=== PATIENT | female | born 1955 | race Caucasian/White ===

== ENCOUNTER → 2017-02-05 | Outpatient (CLI) | payer BC, OTHER ==
--- NOTE | 2017-02-05 09:53 | MM ---
Reason for exam: screening (asymptomatic). Last mammogram was performed 1 year ago. History: Patient is postmenopausal. Physical Findings: A clinical breast exam by your physician is recommended on an annual basis and results should be correlated with mammographic findings. MG Screening Mammo w CAD Bilateral CC and MLO view(s) were taken. Prior study comparison: February 07, 2016, mammogram, performed at [facility]. February 05, 2015, mammogram, performed at [facility]. The breast tissue is almost entirely fat. There is no discrete abnormality. No significant changes when compared with prior studies. ASSESSMENT: Negative, BI-RAD 1 RECOMMENDATION: Routine screening mammogram of both breasts in 1 year.
== END | disposition home or self-care (01) ==
LOC: RADMAMWWP 07:36
PROVIDERS: ATTEND Family Medicine
DX: Z12.31 Encounter for screening mammogram for malignant neoplasm of breast (principal)

== ENCOUNTER → 2018-02-07 | Outpatient (CLI) | payer BC, OTHER ==
--- NOTE | 2018-02-08 13:25 | MM ---
Reason for exam: screening (asymptomatic). Last mammogram was performed 1 year ago. History: Patient is postmenopausal. Physical Findings: A clinical breast exam by your physician is recommended on an annual basis and results should be correlated with mammographic findings. MG Screening Mammo w CAD Bilateral CC, MLO, and XCCL view(s) were taken. Prior study comparison: February 05, 2017, bilateral MG screening mammo w CAD. February 07, 2016, mammogram, performed at [facility]. There are scattered fibroglandular densities. No significant changes when compared with prior studies. ASSESSMENT: Negative, BI-RAD 1 RECOMMENDATION: Routine screening mammogram of both breasts in 1 year.
== END | disposition home or self-care (01) ==
LOC: RADMAMWWP 07:58
PROVIDERS: ATTEND Family Medicine
DX: Z12.31 Encounter for screening mammogram for malignant neoplasm of breast (principal)
CPT/HCPCS: 77067

== ENCOUNTER → 2018-09-29 | Outpatient (CLI) | payer BC, OTHER ==
--- NOTE | 2018-09-30 13:55 | CONS ---
CONSULTATION DATE OF SERVICE: 10/03/2018 This patient is a 62-year-old lady who has been evaluated in the sleep center for possible obstructive sleep apnea-hypopnea syndrome. HISTORY OF PRESENT ILLNESS/SLEEP-WAKE EVALUATION: Patient usually goes to bed around 11 p.m. and gets up around 9 a.m. basically 7 days a week. Sometimes she has problems with falling asleep for more than 30 minutes. No TV in bedroom. She sleeps in different positions, has episodes of occasional snoring. She wakes up from sleep 2 times, one time with nocturia. During the day, she may take a nap at 4 p.m. She feels refreshed after a nap. Dewy Rose Sleepiness Scale is 3. PAST MEDICAL HISTORY: Positive for: 1. Hypertension. 2. Hypothyroidism. 3. Hyperlipidemia. 4. Diabetes mellitus. SURGICAL HISTORY: Partial hysterectomy. MEDICATIONS: 1. Glipizide. 2. L-thyroxine. 3. Metoprolol. 4. Lisinopril. 5. Procardia. 6. Fenofibrate. 7. Atorvastatin. 8. Hydrochlorothiazide. 9. Zolpidem, presently 10 mg at bedtime. REVIEW OF SYSTEMS: Difficulties to initiate sleep. Multiple awakenings from sleep. FAMILY HISTORY: Hypertension, hyperlipidemia, headaches, ulcers, diabetes, thyroid problems, anemia. PHYSICAL EXAMINATION: GENERAL: A pleasant lady without distress. VITAL SIGNS: BP 137/70, HR 93, RR 18, height 5 feet 3-1/2 inches, weight 245.6 pounds, body mass index 42.7, temperature 98.0, oxygen saturation at room air 95%. HEENT: PERRLA, EOMI. Evaluation of oropharynx showed tongue protrudes midline. Extremely low position of soft palate. Mallampati IV. NECK: Supple. No JVD. Thyroid is not palpable. Neck measures 15-1/2 inches in circumference. LUNGS: Clear to percussion and to auscultation. Good air exchange. No wheezing or rhonchi. HEART: S1, S2 regular. No murmurs, gallops or rubs. ABDOMEN: Obese. EXTREMITIES: No clubbing or cyanosis. GRAPHICS COORDINATOR: Awake, alert, and oriented X3. Cranial nerves 2 to 7 intact. There is no fasciculation or atrophy. noted. No focal deficits observed. IMPRESSION: 1. Snoring, awakenings from sleep with nocturia, extremely low position of soft palate; obstructive sleep apnea-hypopnea syndrome. 2. Obesity; body mass index was 42.7. 3. Hypertension. 4. Hyperlipidemia. 5. Diabetes mellitus. 6. Status post partial hysterectomy. 7. Difficulties to initiate sleep. 8. Psychophysiological insomnia. PLAN: 1. Polysomnography for evaluation of patient's breathing during sleep. 2. CPAP/BiPAP titration if sleep study confirms obstructive sleep apnea-hypopnea syndrome. 3. Preferable position during sleep on the side. 4. No driving if patient feels any sleepiness. 5. I will see patient for follow up visit to explain results of testing and following plan. 6. Psychological techniques for treatment of insomnia have been discussed with the patient, including stimulus control, paradoxical intention, worry time, no watching clock. Thank you very much for referring this patient for consultation. Sincerely, Paresh Zaidi MD, PhD, FAASM Diplomat of [place] [employer] [place] [employer] [facility] [place] MMODL / IJN: [id number] /
== END ==
LOC: SLEEP 14:36
PROVIDERS: ATTEND Internal Medicine
DX: G47.33 Obstructive sleep apnea (adult) (pediatric) (principal); E66.9 Obesity, unspecified; I10 Essential (primary) hypertension; E78.5 Hyperlipidemia, unspecified; E11.9 Type 2 diabetes mellitus without complications; F51.04 Psychophysiologic insomnia; Z90.711 Acquired absence of uterus with remaining cervical stump; Z99.89 Dependence on other enabling machines and devices; Z68.41 Body mass index [BMI] 40.0-44.9, adult; Z79.899 Other long term (current) drug therapy
CPT/HCPCS: 99211

== ENCOUNTER → 2019-03-14 | Outpatient (CLI) | payer BC, OTHER ==
--- NOTE | 2019-03-15 10:28 | MM ---
Reason for exam: screening (asymptomatic). Last mammogram was performed 1 year and 1 month ago. History: Patient is postmenopausal. Physical Findings: A clinical breast exam by your physician is recommended on an annual basis and results should be correlated with mammographic findings. MG Screening Mammo w CAD Bilateral CC and MLO view(s) were taken. Prior study comparison: February 07, 2018, bilateral MG screening mammo w CAD. February 05, 2017, bilateral MG screening mammo w CAD. There are benign appearing round linear calcifications in the left breast. There is no discrete abnormality. ASSESSMENT: Benign, BI-RAD 2 RECOMMENDATION: Routine screening mammogram of both breasts in 1 year.
== END | disposition home or self-care (01) ==
LOC: RADMAMWWP 14:58
PROVIDERS: ATTEND Family Medicine
DX: Z12.31 Encounter for screening mammogram for malignant neoplasm of breast (principal)
CPT/HCPCS: 77067

== ENCOUNTER → 2020-04-05 | Outpatient (CLI) | payer BC, OTHER ==
--- NOTE | 2020-04-08 10:30 | MM ---
Reason for exam: screening (asymptomatic). Last mammogram was performed 1 year and 1 month ago. History: Patient is postmenopausal. Physical Findings: A clinical breast exam by your physician is recommended on an annual basis and results should be correlated with mammographic findings. MG Screening Mammo w CAD Bilateral CC and MLO view(s) were taken. Prior study comparison: March 14, 2019, bilateral MG screening mammo w CAD. February 07, 2018, bilateral MG screening mammo w CAD. There are scattered fibroglandular densities. There is no discrete abnormality. No significant changes when compared with prior studies. ASSESSMENT: Negative, BI-RAD 1 RECOMMENDATION: Routine screening mammogram of both breasts in 1 year.
== END | disposition home or self-care (01) ==
LOC: RADMAMWWP 14:26
PROVIDERS: ATTEND Family Medicine
DX: Z12.31 Encounter for screening mammogram for malignant neoplasm of breast (principal)
CPT/HCPCS: 77067

== ENCOUNTER 2021-03-06 14:01 | Emergency (ER) | payer MEDICARE, BC ==
[2021-03-06 14:12] VITALS: TEMP 98.2
[2021-03-06] MEDS ORDERED: SODIUM CHLORIDE 0.9% 1,000 ML IV STA (14:38)
[2021-03-06] MEDS ORDERED: DICYCLOMINE 10 MG/ML 2 ML AMP IM STA (14:44)
[2021-03-06] MEDS ORDERED: PANTOPRAZOLE 40 MG/10 ML VIAL IVP STA (14:45)
[2021-03-06 15:40] LABS: Basophils % (A) 0 %; Eosinophils # (A) 0.1 k/uL (0-0.7); Eosinophils % (A) 1 %; HCT 36.2 % (34.0-46.0); HGB 12.5 gm/dL (11.4-16.0); Lymphocytes # (A) 1.5 k/uL (1.0-4.8); Lymphocytes % (A) 20 %; MCH 33.1 pg (25.0-35.0); MCHC 34.6 g/dL (31.0-37.0); MCV 95.7 fL (80.0-100.0); Monocytes # (A) 0.4 k/uL (0-1.0); Monocytes % (A) 6 %; Neutrophils # (A) 5.2 k/uL (1.3-7.7); Neutrophils % (A) 71 %; Platelet Count 329 k/uL (150-450); RBC 3.78 m/uL (3.80-5.40); RDW 13.6 % (11.5-15.5); WBC 7.3 k/uL (3.8-10.6)
[2021-03-06 15:43] VITALS: BP 184/86; PULSE 77; RESP 16
[2021-03-06 15:44] LABS: Appearance,Urine Cloudy (Clear); Bacteria,Urine Rare /hpf; Bilirubin,Urine Negative (Negative); Blood,Urine Negative (Negative); Color,Urine Yellow; Glucose,Urine (UA) Negative (Negative); Ketones,Urine Negative (Negative); Leukocyte Esterase,Urine Trace (Negative); Mucus,Urine Rare /hpf; Nitrite,Urine Negative (Negative); Protein,Urine 2+ (Negative); RBC,Urine 1 /hpf (0-5); Specific Gravity,Urine 1.011 (1.001-1.035); Squamous Epithelial Cell,Urine 2 /hpf (0-4); Urobilinogen,Urine <2.0 mg/dL (<2.0); WBC,Urine 4 /hpf (0-5)
[2021-03-06 15:50] LABS: ALT 32 U/L (4-34); AST 51 U/L (14-36); African American GFR (CKD) >90 (>60 ml/min/1.73 sqM); Albumin 4.8 g/dL (3.5-5.0); Alkaline Phosphatase 58 U/L (38-126); Anion Gap 12 mmol/L; Blood Urea Nitrogen 10 mg/dL (7-17); Calcium 9.5 mg/dL (8.4-10.2); Carbon Dioxide 32 mmol/L (22-30); Chloride 98 mmol/L (98-107); Glucose 140 mg/dL (74-99); Lipase 138 U/L (23-300); Non-African American GFR(CKD) >90 (>60 ml/min/1.73 sqM); Sodium 142 mmol/L (137-145); Total Bilirubin 0.3 mg/dL (0.2-1.3); Total Protein 7.7 g/dL (6.3-8.2)
--- NOTE | 2021-03-06 16:04 | ED ---
Nausea/Vomiting/Diarrhea HPI - General Chief complaint: Nausea/Vomiting/Diarrhea Stated complaint: Diarrhea, High BP Time Seen by Provider: 03/06/21 14:18 Source: patient Mode of arrival: ambulatory Limitations: no limitations - History of Present Illness Initial comments: 65 year old female presents to emergency Department with a chief complaint of diarrhea. Patient reports she began having diarrhea 3-4 days ago with nausea and few vomiting episodes. States she went to another emergency department 2 days ago and they obtained laboratory work as well as computed tomography scan was diagnosed with gastroenteritis. Patient reports she continues to have the profuse watery diarrhea. She reports some abdominal cramping, diffusely however she states this is particularly whenever she is having bowel movements. States the pain is not postprandial. States her also had a stomach bug 2 days prior to her. She also reports her blood sugar has been elevated more than usual. Also reports her blood pressure then usual but denies any chest pain shortness of breath fevers or chills. Denies any urinary or vaginal symptoms. - Related Data Allergies Allergy/AdvReac Type Severity Reaction Status Date / Time No Known Allergies Allergy Verified 03/06/21 14:12 Review of Systems ROS Statement: Those systems with pertinent positive or pertinent negative responses have been documented in the HPI. ROS Other: All systems not noted in ROS Statement are negative. Past Medical History Past Medical History: Coronary Artery Disease (CAD), Diabetes Mellitus, GERD/Reflux History of Any Multi-Drug Resistant Organisms: None Reported Past Surgical History: Cholecystectomy, Hysterectomy Past Psychological History: No Psychological Hx Reported Smoking Status: Never smoker Past Alcohol Use History: None Reported Past Drug Use History: None Reported General Exam Limitations: no limitations General appearance: alert, in no apparent distress, obese Head exam: Present: atraumatic, normocephalic, normal inspection Eye exam: Present: normal appearance, PERRL, EOMI Pupils: Present: normal accommodation ENT exam: Present: normal exam, normal oropharynx, mucous membranes moist, TM's normal bilaterally, normal external ear exam Neck exam: Present: normal inspection, full ROM. Absent: tenderness, lymphadenopathy Respiratory exam: Present: normal lung sounds bilaterally. Absent: respiratory distress, wheezes, rhonchi, stridor, chest wall tenderness, accessory muscle use Cardiovascular Exam: Present: regular rate, normal rhythm, normal heart sounds. Absent: systolic murmur, diastolic murmur GI/Abdominal exam: Present: soft, tenderness (Minimal diffuse abdominal tendern ess), normal bowel sounds. Absent: distended, guarding, rebound, rigid Extremities exam: Present: normal inspection, full ROM, normal capillary refill. Absent: tenderness, pedal edema, joint swelling Back exam: Present: normal inspection, full ROM. Absent: tenderness, CVA tenderness (R), CVA tenderness (L) Neurological exam: Present: alert, oriented X3, normal gait Psychiatric exam: Present: normal affect, normal mood Skin exam: Present: warm, dry, intact, normal color Course Vital Signs 03/06/21 03/06/21 14:10 15:42 Temperature 98.2 F Pulse Rate 91 77 Respiratory 20 16 Rate Blood Pressure 167/95 184/86 O2 Sat by Pulse 90 L 95 Oximetry Medical Decision Making - Medical Decision Making 65 year old female presents to emergency Department with a chief complaint of diarrhea. On physical examination, no significant abdominal tenderness. Vital signs are within normal limits. CBC CMP remarkable. No significant signs of dehydration through the laboratory work. I reviewed the CT imaging from 2 days ago from the [facility] and it showed no acute findings aside from enteritis. Patient was given Bentyl, Zofran and IV fluids. She will be discharged with Bentyl. She really has Zofran at home. Patient likely gastroenteritis. Patient advised to give us a stool sample even though she could not do it at the moment. We would like to test for possible C. diff. Patient is otherwise well appearing and resting comfortably in the bed .. Strict return parameters were thoroughly discussed the patient was understanding and agreeable. Case discussed with Dr. De Dios. - Lab Data Result diagrams: 03/06/21 15:15 03/06/21 15:15 Lab Results 03/06/21 03/06/21 03/06/21 Range/Units 15:15 15:15 15:15 WBC 7.3 (3.8-10.6) k/uL RBC 3.78 L (3.80-5.40) m/uL Hgb 12.5 (11.4-16.0) gm/dL Hct 36.2 (34.0-46.0) % MCV 95.7 (80.0-100.0) fL MCH 33.1 (25.0-35.0) pg MCHC 34.6 (31.0-37.0) g/dL RDW 13.6 (11.5-15.5) % Plt Count 329 (150-450) k/uL MPV 7.0 Neutrophils % 71 % Lymphocytes % 20 % Monocytes % 6 % Eosinophils % 1 % Basophils % 0 % Neutrophils # 5.2 (1.3-7.7) k/uL Lymphocytes # 1.5 (1.0-4.8) k/uL Monocytes # 0.4 (0-1.0) k/uL Eosinophils # 0.1 (0-0.7) k/uL Basophils # 0.0 (0-0.2) k/uL Sodium 142 (137-145) mmol/L Potassium 4.0 (3.5-5.1) mmol/L Chloride 98 (98-107) mmol/L Carbon Dioxide 32 H (22-30) mmol/L Anion Gap 12 mmol/L BUN 10 (7-17) mg/dL Creatinine 0.54 (0.52-1.04) mg/dL Est GFR (CKD-EPI)AfAm >90 (>60 ml/min/1.73 sqM) Est GFR (CKD-EPI)NonAf >90 (>60 ml/min/1.73 sqM) Glucose 140 H (74-99) mg/dL Calcium 9.5 (8.4-10.2) mg/dL Total Bilirubin 0.3 (0.2-1.3) mg/dL AST 51 H (14-36) U/L ALT 32 (4-34) U/L Alkaline Phosphatase 58 (38-126) U/L Total Protein 7.7 (6.3-8.2) g/dL Albumin 4.8 (3.5-5.0) g/dL Lipase 138 (23-300) U/L Urine Color Yellow Urine Appearance Cloudy H (Clear) Urine pH 6.0 (5.0-8.0) Ur Specific [place] 1.011 (1.001-1.035) Urine Protein 2+ H (Negative) Urine Glucose (UA) Negative (Negative) Urine Ketones Negative (Negative) Urine Blood Negative (Negative) Urine Nitrite Negative (Negative) Urine Bilirubin Negative (Negative) Urine Urobilinogen <2.0 (<2.0) mg/dL Ur Leukocyte Esterase Trace H (Negative) Urine RBC 1 (0-5) /hpf Urine WBC 4 (0-5) /hpf Ur Squamous Epith Cells 2 (0-4) /hpf Urine Bacteria Rare H (None) /hpf Urine Mucus Rare H (None) /hpf - EKG Data EKG Comments: Q-wave in lead 3, sinus rhythm Ventricular rate 86, MT 180, QRS 86, QTC 449. Disposition Clinical Impression: Gastroenteritis Disposition: HOME SELF-CARE Condition: Stable Instructions (If sedation given, give patient instructions): Dehydration (ED), Gastroenteritis (DC) Additional Instructions: follow with a primary care physician. Drink plenty of fluids. Return to emergency department if symptoms worsen. Is patient prescribed a controlled substance at d/c from ED?: No Referrals: Aden Jeffers DO [Primary Care Provider] - 1-2 days Time of Disposition: 16:58
== END 2021-03-06 17:25 | disposition home or self-care (01) ==
LOC: EC 14:01
DX: K52.9 Noninfective gastroenteritis and colitis, unspecified (principal); E11.9 Type 2 diabetes mellitus without complications; I25.10 Atherosclerotic heart disease of native coronary artery without angina pectoris; K21.9 Gastro-esophageal reflux disease without esophagitis
CPT/HCPCS: 36415; 93005; 80053; 83690; 85025; 81001; 99284; 96374; 96361 ×2; 96372; J0500; C9113

== ENCOUNTER → 2021-04-07 | Outpatient (CLI) | payer MEDICARE ==
--- NOTE | 2021-04-08 10:53 | MM ---
Reason for exam: screening (asymptomatic). Last mammogram was performed 1 year ago. History: Patient is postmenopausal. Physical Findings: A clinical breast exam by your physician is recommended on an annual basis and results should be correlated with mammographic findings. MG 3D Screening Mammo W/Cad Bilateral CC and MLO view(s) were taken. Prior study comparison: April 05, 2020, bilateral MG screening mammo w CAD. March 14, 2019, bilateral MG screening mammo w CAD. February 07, 2018, bilateral MG screening mammo w CAD. There are scattered fibroglandular densities. There are benign appearing round linear calcifications bilaterally. There is no discrete abnormality. ASSESSMENT: Benign, BI-RAD 2 RECOMMENDATION: Routine screening mammogram of both breasts in 1 year.
--- NOTE | 2021-04-08 18:52 | BD ---
EXAMINATION TYPE: Axial Bone Density DATE OF EXAM: 04/07/2021 COMPARISON: NONE CLINICAL HISTORY: 65 YR OLD FEMALE.....ICD-10 CODE: M84.80 OTHER DISORDER OF BD Height: 62.3 Weight: 237 FRAX RISK QUESTIONS: Secondary Osteoporosis: YES Menopause before 45: YES RISK FACTORS HISTORY OF: Postmenopausal woman: YES, AT AGE 42 YRS OLD, TOTAL HYST Lost more than 2 inches in height since high school: YES Hyperparathyroidism: NO Adrenal Insufficiency: NO MEDICATIONS: Thyroid Medications: Which medication: YES SYNTHROID FOR UNDER 1 YEAR Additional Medications: BP MEDS, LIPIDIZED, REFLUX MEDS, STATINS FOR CHOLESTEROL, VIT D Additional History: STOMACH ULCERS, HYPERTENSION, CHOLESTEROL, REFLUX, DIABETIC EXAM MEASUREMENTS: Bone mineral densitometry was performed using the [employer] System. Bone mineral density as measured about the Lumbar spine is: ----- L1-L4(G/cm2): 1.307 T Score Values are as follows: ----- L1: 0.2 ----- L2: 1.0 ----- L3: 1.4 ----- L4: 0.6 ----- L1-L4: 1.1 Bone mineral density has: FIRST DEXA SCAN.....BASELINE STUDY Bone mineral density about the R hip (g/cm2): 1.240 Bone mineral density about the L hip (g/cm2): 1.273 T Score values are as follows: -----R Neck: 0.2 -----L Neck: -0.3 -----R Total: 1.8 -----L Total: 2.1 Bone mineral density has: BASELINE STUDY FRAX%s: THERE IS A 6.2% CHANCE FOR A MAJOR OSTEOPOROTIC FX AND A 0.2% FOR HIP......PROBABILITY FO R FX IN 10 YRS TIME IMPRESSION: Normal (Values between +1 and -1 indicate normal bone mass). Consider repeating this study in 5 year s or sooner if there is some new clinical indication. NOTE: T-SCORE=SD OF THE YOUNG ADULT MEAN.
== END | disposition home or self-care (01) ==
LOC: RADMAMWWP 08:03
PROVIDERS: ATTEND Family Medicine
DX: Z12.31 Encounter for screening mammogram for malignant neoplasm of breast (principal); Z78.0 Asymptomatic menopausal state; M84.80 Other disorders of continuity of bone, unspecified site
CPT/HCPCS: 77063; 77067; 77080

== ENCOUNTER → 2022-04-08 | Outpatient (CLI) | payer MEDICARE ==
--- NOTE | 2022-04-09 08:41 | MM ---
Reason for Exam: Screening (asymptomatic). Last screening mammogram was performed 12 month(s) ago. Patient History: Menarche at age 14. First Full-Term at age 14. Left ovary removed at age 34. Right ovary removed at age 34. Hysterectomy at age 34. Postmenopausal. Risk Values: [place] 5 year model risk: 1.1%. NCI Lifetime model risk: 3.8%. Prior Study Comparison: 03/14/2019 Bilateral Screening Mammogram, [facility]. 04/05/2020 Bilateral Screening Mammogram, [facility]. 04/07/2021 Bilateral Screening Mammogram, [facility]. Tissue Density: There are scattered fibroglandular densities. Findings: Analyzed By CAD. There is no suspicious group of microcalcifications or new suspicious mass in either breast. No significant change prior examinations. Overall Assessment: Benign, BI-RAD 2 Management: Screening Mammogram of both breasts in 1 year. A clinical breast exam by your physician is recommended on an annual basis and results should be correlated with mammographic findings. Electronically signed and approved by: Arnulfo Holland D.O.
== END | disposition home or self-care (01) ==
LOC: RADMAMWWP 11:00
PROVIDERS: ATTEND Family Medicine
DX: Z12.31 Encounter for screening mammogram for malignant neoplasm of breast (principal); Z78.0 Asymptomatic menopausal state
CPT/HCPCS: 77063; 77067

== ENCOUNTER 2022-04-11 14:13 | Emergency (ER) | payer MEDICARE, OTHER ==
[2022-04-11 14:37] VITALS: RESP 20; TEMP 98.3
[2022-04-11] MEDS ORDERED: DIPH,PERTUS(ACELL)TETVAC-LF 0.5 ML VIAL IM ONE (14:48)
--- NOTE | 2022-04-11 15:06 | ED ---
General Adult HPI - General Chief complaint: Fall Stated complaint: Fall Time Seen by Provider: 04/11/22 14:18 Source: patient, EMS, RN notes reviewed, old records reviewed Mode of arrival: EMS Limitations: no limitations - History of Present Illness Initial comments: 66 yo female presenting status post fall. Patient was getting her garden hose out of the pool, she turned and fell striking the back of her head on concrete. She is on Coumadin. She is uncertain why she takes Coumadin. Denies LOC. Denies neck pain. She was placed in a c-collar. No chest pain or abdominal pain. No extremity injury. - Related Data Home Medications Medication Instructions Recorded Confirmed ALPRAZolam [Xanax] 0.25 mg PO BID PRN 04/11/22 04/11/22 Atorvastatin [Lipitor] 80 mg PO HS 04/11/22 04/11/22 Butalb/Acetaminophen/Caffeine 1 cap PO Q4HR PRN 04/11/22 04/11/22 [Fioricet 50-300-40 mg Capsule] Clopidogrel [Plavix] 75 mg PO DAILY 04/11/22 04/11/22 Fenofibrate,Micronized 200 mg PO DAILY 04/11/22 04/11/22 [Fenofibrate] Levothyroxine Sodium [Synthroid] 50 mcg PO DAILY 04/11/22 04/11/22 Metoprolol Succinate [Metoprolol 25 mg PO DAILY 04/11/22 04/11/22 Succinate ER] NIFEdipine [NIFEdipine ER] 90 mg PO DAILY 04/11/22 04/11/22 Sucralfate [Carafate] 1 gm PO BID 04/11/22 04/11/22 Ubidecarenone [Co Q-10] 300 mg PO DAILY 04/11/22 04/11/22 glipiZIDE [Glucotrol] 5 mg PO AC-BID 04/11/22 04/11/22 hydroCHLOROthiazide [Hydrodiuril] 12.5 mg PO DAILY 04/11/22 04/11/22 lisinopriL 40 mg PO HS 04/11/22 04/11/22 Allergies Allergy/AdvReac Type Severity Reaction Status Date / Time No Known Allergies Allergy Verified 04/11/22 15:56 Review of Systems ROS Statement: Those systems with pertinent positive or pertinent negative responses have been documented in the HPI. ROS Other: All systems not noted in ROS Statement are negative. Past Medical History Past Medical History: Coronary Artery Disease (CAD), Diabetes Mellitus, GERD/Reflux History of Any Multi-Drug Resistant Organisms: None Reported Past Surgical History: Cholecystectomy, Hysterectomy Past Psychological History: No Psychological Hx Reported Smoking Status: Never smoker Past Alcohol Use History: None Reported Past Drug Use History: None Reported General Exam Limitations: no limitations General appearance: alert, in no apparent distress Head exam: Present: normocephalic, other (Occipital hematoma) Eye exam: Present: normal appearance, PERRL ENT exam: Present: normal exam Neck exam: Present: normal inspection, other (C-collar in place). Absent: tenderness, meningismus Respiratory exam: Present: normal lung sounds bilaterally, respiratory distress Cardiovascular Exam: Present: regular rate, normal rhythm GI/Abdominal exam: Present: soft. Absent: distended, tenderness, guarding Extremities exam: Present: normal inspection, normal capillary refill. Absent: pedal edema Neurological exam: Present: alert, oriented X3, CN II-XII intact. Absent: motor sensory deficit Psychiatric exam: Present: normal affect, normal mood Skin exam: Present: warm, dry, intact Course Vital Signs 04/11/22 14:25 Temperature 98.3 F Pulse Rate 83 Respiratory 20 Rate Blood Pressure 185/87 O2 Sat by Pulse 95 Oximetry Medical Decision Making - Medical Decision Making 66 yo female status post mechanical fall with occipital headache injury. Patient has an occipital hematoma which is not bleeding no laceration. No extremity injury no chest or abdominal injury. Patient is on Coumadin, laboratory studies were obtained, she has a mild anemia, normal INR at 1.1. Normal electrolytes. Head CT performed which shows external occipital hematoma without intracranial hemorrhage. Cervical spine negative for fracture subluxation. Patient has no neck pain on exam. No focal numbness or weakness. She does have family who can stay with her at home. She is stable for discharge at this time. - Lab Data Result diagrams: 04/11/22 14:58 04/11/22 14:58 Lab Results 04/11/22 04/11/22 04/11/22 Range/Units 14:58 14:58 14:58 WBC 6.5 (3.8-10.6) k/uL RBC 3.70 L (3.80-5.40) m/uL Hgb 11.2 L (11.4-16.0) gm/dL Hct 35.3 (34.0-46.0) % MCV 95.5 (80.0-100.0) fL MCH 30.4 (25.0-35.0) pg MCHC 31.8 (31.0-37.0) g/dL RDW 13.5 (11.5-15.5) % Plt Count 293 (150-450) k/uL MPV 7.3 Neutrophils % 61 % Lymphocytes % 30 % Monocytes % 4 % Eosinophils % 3 % Basophils % 0 % Neutrophils # 4.0 (1.3-7.7) k/uL Lymphocytes # 2.0 (1.0-4.8) k/uL Monocytes # 0.3 (0-1.0) k/uL Eosinophils # 0.2 (0-0.7) k/uL Basophils # 0.0 (0-0.2) k/uL PT 11.4 (9.0-12.0) sec INR 1.1 (<1.2) APTT 22.5 (22.0-30.0) sec Sodium 139 (137-145) mmol/L Potassium 3.6 (3.5-5.1) mmol/L Chloride 104 (98-107) mmol/L Carbon Dioxide 26 (22-30) mmol/L Anion Gap 9 mmol/L BUN 18 H (7-17) mg/dL Creatinine 0.61 (0.52-1.04) mg/dL Est GFR (CKD-EPI)AfAm >90 (>60 ml/min/1.73 sqM) Est GFR (CKD-EPI)NonAf >90 (>60 ml/min/1.73 sqM) Glucose 193 H (74-99) mg/dL Calcium 8.9 (8.4-10.2) mg/dL Total Bilirubin 0.2 (0.2-1.3) mg/dL AST 31 (14-36) U/L ALT 27 (4-34) U/L Alkaline Phosphatase 49 (38-126) U/L Total Protein 7.2 (6.3-8.2) g/dL Albumin 4.5 (3.5-5.0) g/dL Disposition Clinical Impression: Fall, Concussion Disposition: HOME SELF-CARE Condition: Fair Instructions (If sedation given, give patient instructions): Concussion (ED) Is patient prescribed a controlled substance at d/c from ED?: No Referrals: Aden Jeffers DO [Primary Care Provider] - 1-2 days Time of Disposition: 16:11
[2022-04-11 15:22] LABS: Basophils % (A) 0 %; Eosinophils # (A) 0.2 k/uL (0-0.7); Eosinophils % (A) 3 %; HCT 35.3 % (34.0-46.0); HGB 11.2 gm/dL (11.4-16.0); Lymphocytes % (A) 30 %; MCH 30.4 pg (25.0-35.0); MCHC 31.8 g/dL (31.0-37.0); MCV 95.5 fL (80.0-100.0); Mean Platelet Volume 7.3; Monocytes # (A) 0.3 k/uL (0-1.0); Monocytes % (A) 4 %; Neutrophils % (A) 61 %; Platelet Count 293 k/uL (150-450); RDW 13.5 % (11.5-15.5); WBC 6.5 k/uL (3.8-10.6)
[2022-04-11 15:38] LABS: INR 1.1 (<1.2); Partial Thromboplastin Time 22.5 sec (22.0-30.0); Prothrombin Time 11.4 sec (9.0-12.0)
[2022-04-11 15:40] LABS: ALT 27 U/L (4-34); AST 31 U/L (14-36); African American GFR (CKD) >90 (>60 ml/min/1.73 sqM); Albumin 4.5 g/dL (3.5-5.0); Alkaline Phosphatase 49 U/L (38-126); Anion Gap 9 mmol/L; Blood Urea Nitrogen 18 mg/dL (7-17); Calcium 8.9 mg/dL (8.4-10.2); Carbon Dioxide 26 mmol/L (22-30); Chloride 104 mmol/L (98-107); Glucose 193 mg/dL (74-99); Non-African American GFR(CKD) >90 (>60 ml/min/1.73 sqM); Potassium 3.6 mmol/L (3.5-5.1); Sodium 139 mmol/L (137-145); Total Bilirubin 0.2 mg/dL (0.2-1.3); Total Protein 7.2 g/dL (6.3-8.2)
[2022-04-11] MEDS ORDERED: MORPHINE SULFATE 4 MG/ML SYRINGE IVP STA (15:44)
--- NOTE | 2022-04-11 15:59 | CT ---
EXAMINATION TYPE: CT brain mansoor patterson DATE OF EXAM: 04/11/2022 COMPARISON: None HISTORY: Fall, hit head CT DLP: 1737.7 mGycm Automated exposure control for dose reduction was used. Images obtained of the brain and cervical spine with no contrast. Ventricles have normal size. There is no mass effect or midline shift. No evidence of intracranial he morrhage. There is hypodensity in the anterior internal capsule bilaterally. There is hypodensity in the centrum semiovale bilaterally. The calvarium is intact. There is occipital large scalp hematoma. This measures up to 12 mm in thickness. No fracture seen. Cervical vertebra show some straightening. There is disc space narrowing at C4-5 and C5-6 and C6-7 wi th spurring of the endplates. The posterior elements are intact. Skull base is intact. IMPRESSION: Cerebral atrophy and moderate chronic small vessel ischemia. No acute intracranial abnormality. Large occipital scalp hematoma. Spondylotic changes in the cervical spine. No fracture seen.
[2022-04-11] MEDS ORDERED: ONDANSETRON ODT 4 MG TAB PO STA (16:38)
[2022-04-11 16:49] VITALS: BP 165/86
[2022-04-11 17:54] VITALS: PULSE 86
== END 2022-04-11 17:54 | disposition home or self-care (01) ==
LOC: EC 14:13
DX: S06.0X0A Concussion without loss of consciousness, initial encounter (principal); E11.9 Type 2 diabetes mellitus without complications; Z23 Encounter for immunization; W19.XXXA Unspecified fall, initial encounter
CPT/HCPCS: 36415; 80053; 85025; 85610; 85730; 72125; 70450; 90715; 99284; 96374; 90471; J2270

== ENCOUNTER → 2022-05-15 | Outpatient (CLI) | payer MEDICARE, OTHER ==
--- NOTE | 2022-05-15 12:02 | XR ---
EXAMINATION TYPE: XR knee complete RT DATE OF EXAM: 05/15/2022 COMPARISON: NONE HISTORY: Pain TECHNIQUE: Three views are submitted. FINDINGS: There is marked narrowing of patellofemoral joint and medial compartment knee joint with hypertrophic spurring. Small exostosis medially and posteriorly not excluded. No acute fracture or dislocation. M ild osteopenic change. IMPRESSION: 1. Severe hypertrophic arthropathy in a pattern most typical of osteoarthritis.
== END | disposition home or self-care (01) ==
LOC: RADXRYALE 11:14
PROVIDERS: ATTEND Physician Assistant Medical
DX: M17.11 Unilateral primary osteoarthritis, right knee (principal)

== ENCOUNTER → 2023-03-12 | Outpatient (CLI) | payer MEDICARE ==
[2023-03-12 15:13] LABS: INR 1.1 (<1.2); Partial Thromboplastin Time 22.8 sec (22.0-30.0)
[2023-03-12 20:22] LABS: ALT 17 U/L (8-44); AST 19 U/L (13-35); Albumin 4.7 d/dL (3.8-4.9); Albumin/Globulin Ratio 1.81 Ratio (1.60-3.17); Alkaline Phosphatase 37 U/L (41-126); BUN/Creat Ratio 22.71 Ratio (12.00-20.00); Blood Urea Nitrogen 15.9 mg/dL (9.0-27.0); Calcium 10.1 mg/dL (8.7-10.3); Carbon Dioxide 26.2 mmol/L (21.6-31.8); Chloride 103 mmol/L (96-109); Globulin 2.6 d/dL (1.6-3.3); Glucose 100 mg/dL (70-110); Potassium 4.5 mmol/L (3.5-5.5); Sodium 142 mmol/L (135-145); Total Bilirubin <0.2 mg/dL (0.3-1.2); Total Protein 7.3 d/dL (6.2-8.2)
[2023-03-12 21:42] LABS: Basophils # (A) 0.04 X 10*3/uL (0.00-0.10); Basophils % (A) 0.6 %; Eosinophils % (A) 1.6 %; HCT 38.2 % (37.2-46.3); HGB 11.4 d/dL (12.0-15.0); Lymphocytes # (A) 2.45 X 10*3/uL (0.90-5.00); Lymphocytes % (A) 39.6 %; MCH 30.8 pg (27.0-32.0); MCHC 29.8 d/dL (32.0-37.0); MCV 103.2 FL (80.0-97.0); Mean Platelet Volume 9.9 FL (9.5-12.2); Monocytes # (A) 0.41 X 10*3/uL (0.20-1.00); Monocytes % (A) 6.6 %; NRBC Per 100 WBC 0 X 10*3/uL (0.00-0.01); Neutrophils # (A) 3.16 X 10*3/uL (1.80-7.70); Neutrophils % (A) 51.3 %; Platelet Count 324 X 10*3/uL (140-440); RDW 13.3 % (11.5-14.5); WBC 6.18 X 10*3/uL (4.50-10.00)
== END | disposition home or self-care (01) ==
LOC: LABPAT 12:38
PROVIDERS: ATTEND Orthopaedic Surgery
DX: Z01.818 Encounter for other preprocedural examination (principal); M17.11 Unilateral primary osteoarthritis, right knee; R94.31 Abnormal electrocardiogram [ECG] [EKG]
CPT/HCPCS: 80053; 83036; 85025; 85610; 85730; 87070; 93005

== ENCOUNTER → 2023-03-18 | Outpatient (CLI) | payer MEDICARE ==
--- NOTE | 2023-03-18 11:32 | CT ---
EXAMINATION TYPE: CT right knee - [facility] Protocol DATE OF EXAM: 03/18/2023 COMPARISON: none HISTORY: Rinku Total Knee Arthroplasty CT right knee - [facility] Protocol FINDINGS: Severe multicompartment degenerative change about the right knee. Extensive spur formation. Small sup rapatellar joint effusion. Osseous structures as visualized don't demonstrate evidence for lesion or fracture. Hip joint spaces and ankles are within normal limits. IMPRESSION: Rinku Total Knee Arthroplasty
== END | disposition home or self-care (01) ==
LOC: RADCTMAIN 10:41
PROVIDERS: ATTEND Orthopaedic Surgery
DX: M25.462 Effusion, left knee (principal); Z96.652 Presence of left artificial knee joint

== ENCOUNTER 2023-04-07 13:21 | Day surgery (SDC) | payer MEDICARE ==
[~2023-04-07 13:21] MED LIST: ACETAMINOPHEN TAB 500 MG TAB PO PRN; DEXAMETHASONE SOD PHOSPHATE 10 MG/ML 1 ML VIAL IV PRN; DOCUSATE 100 MG CAP PO PRN; FAMOTIDINE 20 MG/2 ML VIAL IVP PRN; HYDROmorphone 0.5 MG/0.5 ML SYRINGE IVP PRN; KETOROLAC 15 MG/ML 1 ML VIAL IVP PRN; LIDOCAINE 1% (10MG/ML) FOR IV START INTRADERMA PRN; ONDANSETRON 4 MG/2 ML VIAL IVP ONE; ONDANSETRON 4 MG/2 ML VIAL IVP PRN; ROPIVACAINE/EPI/CLONIDINE/KET 50 ML SYRINGE MISCELLANE PRN; TRANEXAMIC 1,000 MG/100ML-NACL 1,000 MG in SALINE 1 100ML.BAG IV PRN; TRANEXAMIC 1,000 MG/100ML-NACL 1,000 MG in SALINE 1 100ML.BAG IVPB PRN; oxyCODONE ER 10 MG TAB.ER.12H PO PRN
[2023-04-07 14:25] LABS: Glucose,Whole Blood 89 mg/dL (70-110)
[2023-04-07] MEDS: LACTATED RINGERS 1,000 ML IV SCH ×3 (14:28→21:10)
[2023-04-07] MEDS ORDERED: MIDAZOLAM 2 MG/2 ML VIAL IVP ONE (14:54)
[2023-04-07] MEDS ORDERED: fentaNYL (PF) 50 MCG/ML 2 ML AMP ONE (15:25)
[2023-04-07] MEDS ORDERED: PROPOFOL 10 MG/ML 20 ML VIAL IV ONE (15:25)
[2023-04-07] MEDS ORDERED: MIDAZOLAM 2 MG/2 ML VIAL ONE (15:25)
[2023-04-07] MEDS ORDERED: NEOSTIGMINE 1 MG/ML 10 ML VIAL ONE (15:25)
[2023-04-07] MEDS ORDERED: TRANEXAMIC 1,000 MG/100ML-NACL PREMIX BAG ONE (15:25)
[2023-04-07] MEDS ORDERED: SODIUM CHLORIDE 0.9% (PF) 10 ML VIAL ONE (15:25)
[2023-04-07] MEDS ORDERED: LIDOCAINE 2% INJ 20 MG/ML (2 ML VIAL) ONE (15:25)
[2023-04-07] MEDS ORDERED: ROPIVACAINE 5 MG/ML 30 ML VIAL ONE (15:25)
[2023-04-07] MEDS ORDERED: ROCURONIUM 10 MG/ML (5 ML VIAL) IV ONE (15:25)
[2023-04-07] MEDS ORDERED: SUCCINYLCHOLINE CHLORIDE 200 MG/10 ML VIAL IV ONE (15:25)
[2023-04-07] MEDS ORDERED: GLYCOPYRROLATE 0.2 MG/ML 2 ML VIAL ONE (15:25)
[2023-04-07] MEDS ORDERED: LACTATED RINGERS 1,000 ML IV ONE (16:54)
--- NOTE | 2023-04-07 17:56 | P.OP ---
Date of Procedure: 04/07/23 Preoperative Diagnosis: 1. Severe right knee osteoarthritis 2. Type 2 diabetes 3. Possible history of stroke on Plavix 4 Postoperative Diagnosis: Same Procedure(s) Performed: Right total knee replacement Implants: 1. [facility] Triathlon CR Femur Size #3 2. [facility] Triathlon [place] Tibial Base Size #3 3. [place] Triathlon CS poly Size #3, 9-mm 4. [facility] Triathlon all poly patella, Size #29 Anesthesia: MICHEL, regional Surgeon: Attila Somers Rat Exterminator #1: Jay Kirkland Estimated Blood Loss (ml): 100 IV fluids (ml): 900 Pathology: none sent Condition: stable Disposition: PACU Indications for Procedure: I met with the patient preoperatively in the office setting and discussed treatment of their symptomatic knee arthritis. They failed a long course of nonsurgical treatment and elected to proceed with an elective total knee replacement. I discussed the potential risks and complications at length and gave them ample time to ask questions. Risks discussed included: risks from anesthesia, superficial site surgical infection, acute and/or chronic periprosthetic joint infection, delayed wound healing, drainage, wound necrosis, instability, stiffness, stiffness requiring manipulation and/or revision surgery, damage to local blood vessels or nerves, aseptic loosening of the implants, extensor mechanism issues including disruption, patellar maltracking, avascular necrosis etc., continued or worsened knee pain, generalized dissatisfaction with surgical outcome, need for revision surgery, an inability to regain preinjury level of function, DVT, PE, other medical complications, and possibly loss of life or limb. The patient voiced their understanding that while these are the most common complications other less common complications are possible. They provided both their verbal and written consent to go forward with surgery. Operative Findings: Severe tricompartmental knee osteoarthritis Description of Procedure: The patient was identified in preoperative holding and the correct operative extremity was verified and marked with a marker. I reviewed the consent form with the patient at length. All of their questions were answered. The patient was given a block by anesthesia. They were then brought back to the operating room. They were transferred onto the operating room table where a general anesthetic, preoperative antibiotics, and tranexamic acid were administered by anesthesia. A tourniquet was applied to the proximal aspect of the operative extremity. The contralateral extremity was padded under the heel and secured to the operating room table with a nonsterile blue towel and tape. The ipsilateral arm was carefully draped across the patient's chest and secured with a pillow and foam. A post was applied over the lateral aspect of the ipsilateral thigh and a bolster was placed under the ipsilateral foot. I verified that the operative extremity was stable and the knee was flexed to 90. The operative extremity was then placed in a leg aguilar, nonsterile drapes were applied, and the extremity was prepped and draped sterilely in the standard sterile fashion. Prior to starting surgery timeout was performed identifying the correct patient, operative extremity, and procedure. The leg was then elevated, exsanguinated with an Esmarch bandage, and the tourniquet was inflated. An anterior midline incision was made sharply with a scalpel. Once I had dissected deep to the superficial fascial layer medial and lateral flaps were elevated. A medial parapatellar arthrotomy was created. Upon opening the knee joint there were diffuse arthritic changes in all 3 compartments. The anterior horn of the medial meniscus were sharply released and a medial release was performed around the posterior medial corner of the knee to facilitate retractor placement. The fat pad was excised with electrocautery. The patella was found to be severely arthritic and a provisional cut was made with a sagittal saw to facilitate mobilization of the extensor mechanism during the procedure. Remnants of the ACL and PCL were then excised from the notch. 4 mm pins were then placed within the incision in the medial distal femur and proximal tibia. Arrays were applied to the pins and I verified they were completely tightened. The knee was then registered with the [employer] robot and manipulations in implant position were made to balance the knee and opitmize implant position. Using the Rinku robotic saw all cuts were made in accordance with our plan. After all bony fragments had been removed the cuts were verified with the planar probe. The tibia was then subluxed forward and sized. The knee was brought into flexion and a lamina risk and insurance manager was placed to allow removal of the meniscal remnants both medially and laterally as well as posterior osteophytes. Local anesthetic was then infiltrated around the joint capsule. Trial implants were then placed within the knee. Range of motion and collateral ligament tension was then evaluated. Adjustments in implant size and position were then made accordingly. Once the knee was felt to be appropriately balanced the Rinku pins were removed. The patella was then recut, sized, and punched. A trial patellar button was then placed. With the trial components in place, the patella tracked midline. The femur was then drilled and the trial component removed. The trial tibial component was then appropriately rotated, pinned, and prepared for the keel. All trial components were then removed from the knee. The knee was thoroughly irrigated with pulsatile lavage. Cement was prepared via vacuum mixing in a bowl on the back table. I then hand pressurized cement into the femur and tibia and placed the implants beginning with the tibial base tray and poly liner, femoral component, and finally the patellar button. All extruded cement was removed including from the pin sites. Once the cement had hardened the knee was evaluated one final time with the final polyethylene liner in place. The knee had full extension and flexion and felt stable to varus and valgus stress throughout the arc of motion. The tourniquet was released and with the tourniquet down the patella tracked midline. All bleeders were controlled with electrocautery. The knee was then soaked for 3 minutes with a dilute Betadine soak. The knee was thoroughly irrigated using 3 L of sterile saline and pulsatile lavage. A deep drain was placed. The extensor mechanism was then reapproximated using pop off Vicryl sutures followed by a running barbed suture. The knee was then closed in layers with a 0 strata fix for the deep fascial layer, 2-0 strata fix for the superficial subcutaneous layer and Monocryl and Steri-Strips for the skin. A sterile dressing and drain sponge were applied. I verified that all instrument, sponge, and sharp counts were correct. The patient was then transferred off the operating room table, extubated, and brought to recovery having tolerated the procedure well. Jay Kirkland PA-C was required as a skilled assistant women's soccer coach due to the complexity of the procedure for patient positioning, draping, retraction, placement of hardware, and closure of wound. PLAN: The patient can weight-bear as tolerated on the operative extremity. DVT prophylaxis with aspirin 81 mg twice a day based on preoperative risk stratification. Follow-up in the office in 2 weeks for wound check and x-rays of the knee including an AP and lateral.
[2023-04-07] MEDS ORDERED: hydrOXYzine pamoate 25 MG CAP PO PRN (17:59)
[2023-04-07] MEDS ORDERED: ONDANSETRON 4 MG/2 ML VIAL IVP PRN (17:59)
[2023-04-07] MEDS ORDERED: HYDROcodone/APAP 5-325MG 1 EACH TAB PO PRN ×2 (17:59)
[2023-04-07] MEDS ORDERED: NALOXONE 0.4 MG/ML 1 ML VIAL IV PRN (17:59)
[2023-04-07] MEDS ORDERED: HYDROmorphone 0.5 MG/0.5 ML SYRINGE IVP PRN ×3 (17:59)
[2023-04-07] MEDS ORDERED: droPERidol 5 MG/2 ML VIAL IVP ONE (18:11)
[2023-04-07 18:26] LABS: Glucose,Whole Blood 245 mg/dL (70-110)
--- NOTE | 2023-04-07 18:33 | P.ANPRN ---
Procedure Note - Anesthesia - Nerve Block Performed Right Adductor Canal Time Out Performed: Yes (14:53) Date of Procedure: 04/07/23 Procedure Start Time: 14:53 Procedure Stop Time: 14:58 Location of Patient: PreOp Indication: Acute Post-Operative Pain, Requested by Surgeon (Dr Somers) Sedation Type: Sedate with meaningful contact maintained Preparation: Sterile Prep Position: Supine Catheter: None Needle Types: Pajunk Needle Gauge: 21 Ultrasound used to visualize needle placement: Yes Ultrasound used to observe medication spread: Yes Injectate: 0.5% Ropivacaine (see comment for volume) (20cc) Blood Aspirated: No Pain Paresthesia on Injection Noted: No Resistance on Injection: Normal Image Stored and Saved: Yes Events: Uneventful and Well Tolerated
--- NOTE | 2023-04-07 18:34 | P.ANPRN ---
Procedure Note - Anesthesia - Nerve Block Performed Right iPack Time Out Performed: Yes Date of Procedure: 04/07/23 Procedure Start Time: 14:59 Procedure Stop Time: 15:04 Location of Patient: PreOp Indication: Acute Post-Operative Pain, Requested by Surgeon (Dr Somers) Sedation Type: Sedate with meaningful contact maintained Preparation: Sterile Prep Position: Supine Catheter: None Needle Types: Pajunk Needle Gauge: 21 Ultrasound used to visualize needle placement: Yes Ultrasound used to observe medication spread: Yes Injectate: 0.5% Ropivacaine (see comment for volume) (15cc +5cc PF Normal saline) Blood Aspirated: No Pain Paresthesia on Injection Noted: No Resistance on Injection: Normal Image Stored and Saved: Yes Events: Uneventful and Well Tolerated
--- NOTE | 2023-04-07 18:39 | XR ---
EXAMINATION TYPE: XR knee limited RT DATE OF EXAM: 04/07/2023 6:33 PM INDICATION: Patient age:Female; 67 years old; Reason for study: Evaluation for Postop abnormality and alignment; COMPARISON: 922 TECHNIQUE: The Right knee(s) was examined in Frontal, lateral projections. FINDINGS: Status post total knee arthroplasty changes with hardware in appropriate alignment and in tact. No evidence of fracture. Subcutaneous lucencies and lucencies within the joint consistent with surgical changes. Drainage catheter in place in the suprapatellar recess. IMPRESSION: Status post total knee arthroplasty changes with hardware intact and appropriate alignment. No fractu res identified.
[2023-04-07 20:45] LABS: Glucose,Whole Blood 239 mg/dL (70-110)
[2023-04-07] MEDS: ASPIRIN 81 MG PO SCH (20:58)
[2023-04-07] MEDS ORDERED: SENNOSIDES-DOCUSATE SODIUM 1 EACH TAB PO SCH (21:00)
[2023-04-07] MEDS ORDERED: ZOLPIDEM 5 MG TAB PO SCH (22:00)
--- NOTE | 2023-04-08 01:30 | P.CONS ---
History of Present Illness - Reason for Consult Consult date: 04/07/23 - History of Present Illness Patient is a 67-year-old female with a PMH of hypertension, hyperlipidemia, type II DM, and hypothyroidism who was admitted to the hospital for scheduled right total knee replacement which she underwent earlier today. The patient was seen postoperatively on the surgical unit for medical consult. The patient reports no pain at the time of interview. She denied any additional complaints as well. He denied experiencing sore throat, chest pain, shortness of breath, nausea, vomiting, abdominal pain, diarrhea. She reports compliance with her medications at home. Review of systems: Pertinent positives and negatives as discussed in HPI, a complete review of systems was performed and all other systems are negative. Physical examination: Vital signs reviewed General: non toxic, no distress, appears at stated age, obese Derm: no unusual rashes/lesions, warm Head: atraumatic, normocephalic, symmetric Eyes: EOMI, no lid lag, anicteric sclera, pupils equal round reactive to light ENT: Nose and ears atraumatic Neck: No cervical lymphadenopathy, trachea midline, supple Mouth: no lip lesion, mucus membranes moist Cardiovascular: S1S2 reg, no murmur, positive dorsalis pedis pulse bilateral, no edema Lungs: CTA bilateral, no rhonchi, no rales, no accessory muscle use Abdominal: soft, nontender to palpation, no guarding Ext: muscle strength 5 out of 5 in all extremities grossly except for right lower extremity due to pain, no gross muscle atrophy, no contractures, right knee surgical dressing in place without surrounding skin abnormalities noted Neuro: CN II-XI grossly intact, no gross focal neuro deficits Psych: Alert, oriented, appropriate affect Assessment: Chronic conditions: Hypertension, hyperlipidemia, hypothyroidism, type II DM Status post right total knee replacement Plan: Continue home medications Insulin sliding scale and blood glucose monitoring Defer management of pain control, DVT prophylaxis, and resumption of home Plavix to primary surgery service We appreciate this opportunity to be involved in this patient's care. We will follow the patient with you. For any further questions, please not hesitate to contact the sound inpatient team. Past Medical History Past Medical History: Coronary Artery Disease (CAD), Diabetes Mellitus, GERD/Reflux, Hyperlipidemia, Hypertension, Thyroid Disorder Additional Past Medical History / Comment(s): ABOUT 2 YEARS AGO, PATIENT HAD A "DROOPY EYE", WAS SENT [facility], POSSIBLE SILENT CVA, PLACED ON PLAVIX. HX: MIGRAINES, NO LONGER. History of Any Multi-Drug Resistant Organisms: None Reported Past Surgical History: Cholecystectomy, Hysterectomy Past Anesthesia/Blood Transfusion Reactions: No Reported Reaction Past Psychological History: Anxiety Smoking Status: Never smoker Past Alcohol Use History: None Reported Past Drug Use History: None Reported - Past Family History Mother Family Medical History: No Reported History Medications and Allergies Home Medications Medication Instructions Recorded Confirmed Type ALPRAZolam [Xanax] 0.25 mg PO BID PRN 04/11/22 04/07/23 History Atorvastatin [Lipitor] 80 mg PO HS 04/11/22 04/07/23 History Clopidogrel [Plavix] 75 mg PO DAILY 04/11/22 04/07/23 History Fenofibrate,Micronized 200 mg PO QAM 04/11/22 04/07/23 History [Fenofibrate] Metoprolol Succinate [Metoprolol 25 mg PO QAM 04/11/22 04/07/23 History Succinate ER] Sucralfate [Carafate] 1 gm PO BID 04/11/22 04/07/23 History glipiZIDE [Glucotrol] 5 mg PO AC-BID 04/11/22 04/07/23 History hydroCHLOROthiazide [Hydrodiuril] 12.5 mg PO QAM 04/11/22 04/07/23 History lisinopriL 40 mg PO HS 04/11/22 04/07/23 History Levothyroxine Sodium [Synthroid] 75 mcg PO QAM 04/02/23 04/07/23 History Semaglutide [Ozempic] 0.25 mg SQ MO 04/02/23 04/07/23 History Sertraline [Zoloft] 50 mg PO QAM 04/02/23 04/07/23 History Zolpidem [Ambien] 5 mg PO HS 04/02/23 04/07/23 History amLODIPine [Norvasc] 10 mg PO QAM 04/02/23 04/07/23 History traZODone HCL [Desyrel] 50 mg PO HS 04/02/23 04/07/23 History Allergies Allergy/AdvReac Type Severity Reaction Status Date / Time No Known Allergies Allergy Verified 04/07/23 14:01 Physical Exam Vitals: Vital Signs Temp Pulse Pulse Resp BP BP Pulse Ox 04/07/23 19:43 97.7 F 86 16 125/75 94 L 04/07/23 18:23 80 16 140/66 94 L 04/07/23 18:07 101 H 16 151/78 93 L 04/07/23 17:52 97 F L 84 16 170/68 93 L 04/07/23 15:10 79 20 182/97 97 04/07/23 14:13 97.7 F 79 20 193/87 95 Intake and Output 04/07/23 04/07/23 04/08/23 14:59 22:59 06:59 Intake Total 1750 Output Total 100 Balance 1650 Intake: IV 1750 Output: Estimated Blood Loss 100 Other: Weight 104.9 kg 104.9 kg Results Labs: Abnormal Lab Results - Last 24 Hours (Table) 04/07/23 04/07/23 Range/Units 18:23 20:44 POC Glucose (mg/dL) 245 H 239 H (70-110) mg/dL
[2023-04-08 02:04] VITALS: RESP 18
[2023-04-08] MEDS: LACTATED RINGERS 1,000 ML IV SCH ×2 (04:26→06:38)
[2023-04-08 06:22] LABS: Glucose,Whole Blood 159 mg/dL (70-110)
[2023-04-08] MEDS ORDERED: LEVOTHYROXINE 75 MCG TAB PO SCH (06:30)
[2023-04-08] MEDS: INSULIN ASPART (NovoLOG) 100 UNIT/ML VIAL SQ SCH ×2 (06:37→11:38)
[2023-04-08 07:38] VITALS: BP 107/73; PULSE 79; TEMP 98.3
[2023-04-08 08:40] LABS: Basophils # (A) 0.01 X 10*3/uL (0.00-0.10); Basophils % (A) 0.1 %; Eosinophils # (A) 0 X 10*3/uL (0.04-0.35); Eosinophils % (A) 0 %; HCT 29.7 % (37.2-46.3); HGB 9.7 d/dL (12.0-15.0); Lymphocytes # (A) 1.24 X 10*3/uL (0.90-5.00); MCH 31.5 pg (27.0-32.0); MCHC 32.7 d/dL (32.0-37.0); MCV 96.4 FL (80.0-97.0); Mean Platelet Volume 9.3 FL (9.5-12.2); Monocytes # (A) 0.48 X 10*3/uL (0.20-1.00); NRBC Per 100 WBC 0 X 10*3/uL (0.00-0.01); Neutrophils # (A) 7.78 X 10*3/uL (1.80-7.70); Neutrophils % (A) 81.4 %; Platelet Count 322 X 10*3/uL (140-440); RBC 3.08 X 10*6/uL (4.10-5.20); RDW 14.7 % (11.5-14.5); WBC 9.56 X 10*3/uL (4.50-10.00)
[2023-04-08] MEDS ORDERED: SUCRALFATE 1 GM TAB PO SCH (09:00)
[2023-04-08] MEDS ORDERED: hydroCHLOROthiazide 12.5 MG CAP PO SCH (09:00)
[2023-04-08] MEDS ORDERED: METOPROLOL SUCCINATE (ER) 25 MG TAB.ER.24H PO SCH (09:00)
[2023-04-08] MEDS ORDERED: SERTRALINE 50 MG TAB PO SCH (09:00)
--- NOTE | 2023-04-08 09:03 | P.DS ---
Providers Expected date of discharge: 04/08/23 Attending physician: Attila Somers Consults: 04/07/23 18:50 Consult Physician Routine Consulting Provider: Melinda Gomez Consult Reason/Comments: medical management Do you want consulting provider notified?: Yes Primary care physician: [facility] Course: This is a 67-year-old female who has been followed in our office by Dr. Somers for continued complaints of right knee pain due to right knee osteoarthritis. Treatment options were discussed, and patient elected to undergo a right total knee arthroplasty. Patient was seen pre-operatively by Peg Perera PA-C, and cleared for surgery. Patient underwent a right total knee arthroplasty on 04/07/[address] Somers. The procedure was performed without complication or sequelae. The patient is doing fairly well postoperatively. Vital signs and labs are stable on postoperative day #1. Patient was examined bedside this morning with Dr. Somers. Patient states she is overall doing very well and the pain in right knee is well-controlled. She has been ambulating with a walker with minimal assistance. She is awaiting evaluation by physical therapy. Patient is comfortable being discharged home today. Patient has no new complaints this morning. On examination, the patient is sitting up in the bedside chair in no apparent distress. She is alert and orientated 3. On inspection of the right knee, there is a clean, dry, intact surgical dressing in place with no bleeding or drainage through the dressing. Patient has good strength and ROM of the right ankle and toes. Motor and sensory function is intact of the right lower extremity. The dorsalis pedis pulse is easily palpable, the right lower extremity is warm and well perfused with brisk capillary refill. Calf is soft and non-tender to palpation. Hemovac drain removed bedside this morning during examination. Patient is discharged home with home health care today in good condition, pending medical clearance. Patient will follow-up in the office at [facility] in 2 weeks. Please see med rec for accurate list of discharge medication. Plan - Discharge Summary Discharge Rx Participant: Yes New Discharge Prescriptions: New Docusate [Colace] 100 mg PO BID #60 capsule Omeprazole 40 mg PO DAILY 30 Days #30 cap Aspirin 81 mg PO BID 30 Days #35 tab HYDROcodone/APAP 5-325MG [[place] 5-325] 1 - 2 tab PO Q6HR PRN 7 Days #32 tab PRN Reason: Pain No Action Sucralfate [Carafate] 1 gm PO BID glipiZIDE [Glucotrol] 5 mg PO AC-BID Fenofibrate,Micronized [Fenofibrate] 200 mg PO QAM Clopidogrel [Plavix] 75 mg PO DAILY Levothyroxine Sodium [Synthroid] 75 mcg PO QAM Zolpidem [Ambien] 5 mg PO HS amLODIPine [Norvasc] 10 mg PO QAM hydroCHLOROthiazide [Hydrodiuril] 12.5 mg PO QAM lisinopriL 40 mg PO HS Metoprolol Succinate [Metoprolol Succinate ER] 25 mg PO QAM Atorvastatin [Lipitor] 80 mg PO HS ALPRAZolam [Xanax] 0.25 mg PO BID PRN PRN Reason: Anxiety Sertraline [Zoloft] 50 mg PO QAM Semaglutide [Ozempic] 0.25 mg SQ MO traZODone HCL [Desyrel] 50 mg PO HS Discharge Medication List ALPRAZolam [Xanax] 0.25 mg PO BID PRN 04/11/22 [History] Atorvastatin [Lipitor] 80 mg PO HS 04/11/22 [History] Clopidogrel [Plavix] 75 mg PO DAILY 04/11/22 [History] Fenofibrate,Micronized [Fenofibrate] 200 mg PO QAM 04/11/22 [History] Metoprolol Succinate [Metoprolol Succinate ER] 25 mg PO QAM 04/11/22 [History] Sucralfate [Carafate] 1 gm PO BID 04/11/22 [History] glipiZIDE [Glucotrol] 5 mg PO AC-BID 04/11/22 [History] hydroCHLOROthiazide [Hydrodiuril] 12.5 mg PO QAM 04/11/22 [History] lisinopriL 40 mg PO HS 04/11/22 [History] Levothyroxine Sodium [Synthroid] 75 mcg PO QAM 04/02/23 [History] Semaglutide [Ozempic] 0.25 mg SQ MO 04/02/23 [History] Sertraline [Zoloft] 50 mg PO QAM 04/02/23 [History] Zolpidem [Ambien] 5 mg PO HS 04/02/23 [History] amLODIPine [Norvasc] 10 mg PO QAM 04/02/23 [History] traZODone HCL [Desyrel] 50 mg PO HS 04/02/23 [History] Aspirin 81 mg PO BID 30 Days #35 tab 04/08/23 [Rx] Docusate [Colace] 100 mg PO BID #60 capsule 04/08/23 [Rx] HYDROcodone/APAP 5-325MG [[place] 5-325] 1 - 2 tab PO Q6HR PRN 7 Days #32 tab 04/08/23 [Rx] Omeprazole 40 mg PO DAILY 30 Days #30 cap 04/08/23 [Rx] Follow up Appointment(s)/Referral(s): [facility] [NON-STAFF] - 1-2 Days Attila Somers MD [Medical Doctor] - 2 Weeks Activity/Diet/Wound Care/Special Instructions: Weight bear to tolerance on operative extremity with a walker. Keep operative dressing in place until follow-up appointment in the office. Call the office if dressing becomes saturated or falls off. May shower over dressing. Take pain medication as prescribed. Take aspirin 81mg twice a day for a week. After one week you may resume your Plavix. After you resume Plavix, you may take aspirin 81 mg once a day 3 weeks. After 4 weeks postop, you may discontinue aspirin. Follow-up in the office in two weeks at [facility]. Call the office with any questions or concerns, Discharge Disposition: HOME WITH HOME HEALTH SERVICES
[2023-04-08] MEDS: ASPIRIN 81 MG PO SCH (09:28)
--- NOTE | 2023-04-08 14:31 | P.PN ---
Subjective Progress Note Date: 04/08/23 Patient is a 67-year-old female with a PMH of hypertension, hyperlipidemia, type II DM, and hypothyroidism who was admitted to the hospital for scheduled right total knee replacement which she underwent earlier today. The patient was seen postoperatively on the surgical unit for medical consult. The patient reports no pain at the time of interview. She denied any additional complaints as well. He denied experiencing sore throat, chest pain, shortness of breath, nausea, vomiting, abdominal pain, diarrhea. She reports compliance with her medications at home. 04/08 Patient was seen and examined. Worked with PT and comfortable with going home. Urinating freely. Passing gas. She has no complaints. Vital signs reviewed General: non toxic, no distress, appears at stated age, obese Derm: no unusual rashes/lesions, warm Head: atraumatic, normocephalic, symmetric Eyes: EOMI, no lid lag, anicteric sclera ENT: Nose and ears atraumatic Neck: No cervical lymphadenopathy, trachea midline, supple Cardiovascular: S1S2 reg, no murmur, positive dorsalis pedis pulse bilateral, no edema Lungs: CTA bilateral, no rhonchi, no rales, no accessory muscle use Ext: muscle strength 5 out of 5 in all extremities grossly except for right lower extremity due to pain, no gross muscle atrophy, no contractures, right knee surgical dressing in place without surrounding skin abnormalities noted Neuro:no gross focal neuro deficits Psych: Alert, oriented, appropriate affect Assessment: Chronic conditions: Hypertension, hyperlipidemia, hypothyroidism, type II DM Status post right total knee replacement Plan: Continue home medications Insulin sliding scale and blood glucose monitoring Defer management of pain control, DVT prophylaxis, and resumption of home Plavix to primary surgery service Patient is medically stable for discharge home. Objective - Vital Signs Vital signs: Vital Signs Temp 98.3 F 04/08/23 07:09 Pulse 79 04/08/23 07:09 Resp 18 04/08/23 07:09 BP 107/73 04/08/23 07:09 Pulse Ox 97 04/08/23 10:13 FiO2 Intake & Output 04/07/23 04/08/23 04/08/23 18:59 06:59 18:59 Intake Total 1750 Output Total 100 100 Balance 1650 -100 Weight 104.9 kg 104.9 kg Intake: IV 1750 Output: Drainage 100 Right Knee 100 Estimated Blood Loss 100 Other: # Voids 4 - Labs CBC & Chem 7: 04/08/23 05:24 Labs: Abnormal Lab Results - Last 24 Hours (Table) 04/07/23 04/07/23 04/08/23 Range/Units 18:23 20:44 05:24 RBC 3.08 L (4.10-5.20) X 10*6/uL Hgb 9.7 L (12.0-15.0) d/dL Hct 29.7 L (37.2-46.3) % RDW 14.7 H (11.5-14.5) % MPV 9.3 L (9.5-12.2) FL Neutrophils # 7.78 H (1.80-7.70) X 10*3/uL Eosinophils # 0 L (0.04-0.35) X 10*3/uL POC Glucose (mg/dL) 245 H 239 H (70-110) mg/dL 04/08/23 Range/Units 06:18 RBC (4.10-5.20) X 10*6/uL Hgb (12.0-15.0) d/dL Hct (37.2-46.3) % RDW (11.5-14.5) % MPV (9.5-12.2) FL Neutrophils # (1.80-7.70) X 10*3/uL Eosinophils # (0.04-0.35) X 10*3/uL POC Glucose (mg/dL) 159 H (70-110) mg/dL
[2023-04-08] MEDS ORDERED: lisinopriL 20 MG TAB PO SCH (21:00)
[2023-04-08] MEDS ORDERED: ATORVASTATIN 80 MG TAB PO SCH (21:00)
[2023-04-08] MEDS ORDERED: traZODone HCL 50 MG TAB PO SCH (21:00)
== END 2023-04-08 12:48 | disposition home health service (06) ==
LOC: OR 13:21 → 4SSUR 17:26 → OR 04-08 12:48
PROVIDERS: ATTEND Orthopaedic Surgery
DX: M17.11 Unilateral primary osteoarthritis, right knee (principal); E11.9 Type 2 diabetes mellitus without complications; Z79.82 Long term (current) use of aspirin; Z79.84 Long term (current) use of oral hypoglycemic drugs; Z79.899 Other long term (current) drug therapy; Z79.02 Long term (current) use of antithrombotics/antiplatelets
CPT/HCPCS: 94760; 97161; 64447; 64999; 85025; 73560; 27447; C1776; C1713; J2250; J0330; J1100; J2710; J0690 ×2; J2405; J3010; J2795; J1885; J2704; J1170; J1790; J2001

== ENCOUNTER → 2024-02-22 | Outpatient (CLI) | payer MEDICARE ==
--- NOTE | 2024-02-23 13:18 | MM ---
Reason for Exam: Screening (asymptomatic). Last mammogram was performed 1 year(s) and 10 month(s) ago. Patient History: Menarche at age 14. First Full-Term at age 14. Left ovary removed at age 34. Right ovary removed at age 34. Hysterectomy at age 34. Postmenopausal. Risk Values: Loida 5 year model risk: 1.1%. NCI Lifetime model risk: 3.5%. Prior Study Comparison: 04/05/2020 Bilateral Screening Mammogram, [facility]. 04/07/2021 Bilateral Screening Mammogram, [facility]. 04/08/2022 Bilateral MG 3D screening mammo w/cad, [facility]. Tissue Density: There are scattered areas of fibroglandular density. Findings: Analyzed By CAD. Right breast: There is no suspicious group of microcalcifications or new suspicious mass. Left breast: There is no suspicious group of microcalcifications or new suspicious mass. Overall Assessment: Negative, BI-RAD 1 Management: Screening Mammogram of both breasts in [address] [facility] will attempt to contact patient to return for supplemental views and ultrasound if indicated. Patient should continue monthly self-breast exams. A clinical breast exam by your physician is recommended on an annual basis. This exam should not preclude additional follow-up of suspicious palpable abnormalities. Note on Loida scores and lifetime risk: 1. A Loida score greater than 3% is considered moderate risk. If this is the case, consider specialist referral to assess eligibility for a risk reducing agent. 2. If overall lifetime risk for the development of breast cancer is 20% or higher, the patient may qualify for future screening with alternating mammogram and breast MRI. Electronically signed and approved by: Dakota De Jesus DO
== END | disposition home or self-care (01) ==
LOC: RADMAMWWP 13:37
PROVIDERS: ATTEND Family Medicine
DX: Z12.31 Encounter for screening mammogram for malignant neoplasm of breast (principal); Z78.0 Asymptomatic menopausal state
CPT/HCPCS: 77067

== ENCOUNTER 2024-03-27 08:26 | Emergency (ER) | payer MEDICARE ==
[2024-03-27 08:31] VITALS: RESP 18
--- NOTE | 2024-03-27 08:59 | ED ---
General Adult HPI - General Chief complaint: Abdominal Pain Stated complaint: abd pain Time Seen by Provider: 03/27/24 08:27 Source: patient Mode of arrival: ambulatory Limitations: no limitations - History of Present Illness Initial comments: Dictation was produced using [employer] dictation software. please excuse any grammatical, word or spelling errors. Chief Complaint: 68-year-old female with history of hypertension diabetes coronary artery disease presents to the ER for epigastric pain History of Present Illness: Patient 68-year-old female she has multiple comorbidities states that she for the last 2 to 3 weeks has been having epigastric abdominal pain. Patient states that the pain is epigastric radiates to both lower ribs and upper abdomen. States that it feels like it hurts more when she eats. States that they recently went on a vacation weeks ago when her pain initially began. Patient denies any nausea. No vomiting. No diarrhea. No fever chills or night sweats. No obvious sick contacts. The ROS documented in this emergency department record has been reviewed and confirmed by me. Those systems with pertinent positive or negative responses have been documented in the HPI. All other systems are other negative and/or noncontributory. - Related Data Home Medications Medication Instructions Recorded Confirmed ALPRAZolam [Xanax] 0.25 mg PO BID PRN 04/11/22 04/07/23 Atorvastatin [Lipitor] 80 mg PO HS 04/11/22 04/07/23 Clopidogrel [Plavix] 75 mg PO DAILY 04/11/22 04/07/23 Fenofibrate,Micronized 200 mg PO QAM 04/11/22 04/07/23 [Fenofibrate] Metoprolol Succinate [Metoprolol 25 mg PO QAM 04/11/22 04/07/23 Succinate ER] Sucralfate [Carafate] 1 gm PO BID 04/11/22 04/07/23 glipiZIDE [Glucotrol] 5 mg PO AC-BID 04/11/22 04/07/23 hydroCHLOROthiazide [Hydrodiuril] 12.5 mg PO QAM 04/11/22 04/07/23 lisinopriL 40 mg PO HS 04/11/22 04/07/23 Levothyroxine Sodium [Synthroid] 75 mcg PO QAM 04/02/23 04/07/23 Semaglutide [Ozempic] 0.25 mg SQ MO 04/02/23 04/07/23 Sertraline [Zoloft] 50 mg PO QAM 04/02/23 04/07/23 Zolpidem [Ambien] 5 mg PO HS 04/02/23 04/07/23 amLODIPine [Norvasc] 10 mg PO QAM 04/02/23 04/07/23 traZODone HCL [Desyrel] 50 mg PO HS 04/02/23 04/07/23 Previous Rx's Medication Instructions Recorded Aspirin 81 mg PO BID 30 Days #35 tab 04/08/23 Docusate [Colace] 100 mg PO BID #60 capsule 04/08/23 HYDROcodone/APAP 5-325MG [[place] 1 - 2 tab PO Q6HR PRN 7 Days #32 04/08/23 5-325] tab Omeprazole 40 mg PO DAILY 30 Days #30 cap 04/08/23 Allergies Allergy/AdvReac Type Severity Reaction Status Date / Time metformin AdvReac Diarrhea Verified 03/27/24 08:31 Review of Systems ROS Statement: Those systems with pertinent positive or pertinent negative responses have been documented in the HPI. ROS Other: All systems not noted in ROS Statement are negative. 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 History of Any Multi-Drug Resistant Organisms: None Reported Past Surgical History: Cholecystectomy, Hysterectomy Additional Past Surgical History / Comment(s): right knee replacement, Past Psychological History: No Psychological Hx Reported Smoking Status: Never smoker Past Alcohol Use History: None Reported Past Drug Use History: None Reported General Exam - General Exam Comments Initial Comments: PHYSICAL EXAM: General Impression: Alert and oriented x3, not in acute distress HEENT: Normocephalic atraumatic, extra-ocular movements intact, pupils equal and reactive to light bilaterally, mucous membranes moist. Cardiovascular: Heart regular rate and rhythm Chest: Able to complete full sentences, no retractions, no tachypnea Abdomen: abdomen soft, palpatory tenderness to the epigastrium and lower anterior chest, non-distended, no organomegaly Musculoskeletal: Pulses present and equal in all extremities, no peripheral edema Motor: no focal deficits noted Neurological: CN II-XII grossly intact, no focal motor or sensory deficits noted Skin: Intact with no visualized rashes Psych: Normal affect and mood Limitations: no limitations Course Vital Signs 03/27/24 03/27/24 08:28 10:10 Temperature 98.2 F Pulse Rate 102 H 87 Respiratory 18 18 Rate Blood Pressure 171/97 160/94 O2 Sat by Pulse 96 96 Oximetry EKG Findings - EKG Comments: EKG Findings:: My EKG interpretation: Ventricular rate 91, sinus rhythm,. 185, cures 80, QTc 378. No TX prolongation, no QTC prolongation, no ST or T-wave changes noted. Overall, this EKG is unremarkable Medical Decision Making - Medical Decision Making Was pt. sent in by a medical professional or institution (, PA, MEDICAL TRANSCRIPTION SUPERVISOR, urgent care, hospital, or snf...) When possible be specific @ -No Did you speak to anyone other than the patient for history (EMS, parent, family, police, friend...)? What history was obtained from this source @ -No Did you review nursing and triage notes (agree or disagree)? Why? @ -I reviewed and agree with nursing and triage notes Were old charts reviewed (outside hosp., previous admission, EMS record, old EKG, old radiological studies, urgent care reports/EKG's, snf records)? Report findings @ -No old charts were reviewed Differential Diagnosis (chest pain, altered mental status, abdominal pain women, abdominal pain men, vaginal bleeding, musculoskeletal, weakness, fever, dyspnea, syncope, headache, dizziness, GI bleed, back pain, seizure, CVA, palpatations, mental health)? @ -Differential Abdominal Pain Women: Appendicitis, Cholecystitis, diverticulosis, ischemic bowel, pancreatitis, hepatitis, UTI, gastroenteritis, AAA, incarcerated hernia, bowel obstruction, constipation, inflammatory bowel, hepatitis, peptic ulcer disease, splenic infarction, perforated viscus, vulvitis, ovarian torsion, PID, kidney stone, pl acenta abruption, this is not meant to be an all-inclusive list EKG interpreted by me (3pts min.). @ -See above X-rays interpreted by me (1pt min.). @ -Chest x-ray shows no acute processes CT interpreted by me (1pt min.). @ -CT of the abdomen pelvis shows no acute processes U/S interpreted by me (1pt. min.). @ -None done What testing was considered but not performed or refused? (CT, X-rays, U/S, labs)? Why? @ -None What meds were considered but not given or refused? Why? @ -None Was smoking cessation discussed for >3mins.? @ -No Were there social determinants of health that impacted care today? How? (Homelessness, low income, unemployed, alcoholism, drug addiction, transportation, low edu. Level, literacy, decrease access to med. care, usp, rehab)? @ -No Was there de-escalation of care discussed even if they declined (Discuss DNR or withdrawal of care, Hospice)? DNR status @ -No What co-morbidities impacted this encounter? (DM, HTN, Smoking, COPD, CAD, Cancer, CVA, ARF, Chemo, Hep., AIDS, mental health diagnosis, sleep apnea, morbid obesity)? @ -History of coronary artery disease, diabetes GERD Was patient admitted / discharged? Hospital course, mention meds given and r oute, prescriptions, significant lab abnormalities, going to OR and other pertinent info. @ -68-year-old female presents emergency department for epigastric pain. She has multiple comorbidities including coronary artery disease, hypertension diabetes. Vital signs upon arrival are within acceptable limits. Patient is make symptoms localized to her epigastrium and lower chest. She does have rep roducible palpatory tenderness to the epigastrium, left lower quadrant and left lower chest. Seems to be reproducible. Patient is well-appearing. Laboratory evaluation obtained. Labs are unremarkable. Troponin is negative. Imaging studies are negative. Patient reevaluated bedside 11:11 AM found to be in stable condition. Patient discharged likely musculoskeletal in nature. Advised follow-up with primary care doctor. Did you discuss the management of the patient with other professionals (professionals i.e. , PA, MEDICAL TRANSCRIPTION SUPERVISOR, lab, RT, psych nurse, social services technician, worker's compensation claims examiner, teacher, certified juvenile probation officer, pillowcase sewer)? Give summary @ -No Was critical care preformed (if so, how long)? @ -No Undiagnosed new problem with uncertain prognosis? @ -No Drug Therapy requiring intensive monitoring for toxicity (Heparin, Nitro, Insulin, Cardizem)? @ -No Were any procedures done? @ -No Diagnosis/symptom? Acute, or Chronic, or Acute on Chronic? Uncomplicated (without systemic symptoms) or Complicated (systemic symptoms)? @ -Abdominal pain Side effects of treatment? @ -No Exacerbation, Progression, or Severe Exacerbation? @ -No Poses a threat to life or bodily function? How? (Chest pain, [place], CA, pneumonia, PE, COPD, DKA, ARF, appy, cholecystitis, CVA, Diverticulitis, Homicidal, Suicidal, threat to staff... and all critical care pts) @ -No - Lab Data Result diagrams: 03/27/24 09:03/27/24 09: Lab Results 03/27/24 03/27/24 03/27/24 Range/Units 09: 09: 09: WBC 8.9 (3.8-10.6) k/uL RBC 3.84 (3.80-5.40) m/uL Hgb 12.4 (11.4-16.0) gm/dL Hct 37.4 (34.0-46.0) % MCV 97.3 (80.0-100.0) fL MCH 32.2 (25.0-35.0) pg MCHC 33.1 (31.0-37.0) g/dL RDW 13.1 (11.5-15.5) % Plt Count 338 (150-450) k/uL MPV 7.1 Neutrophils % 72 % Lymphocytes % 20 % Monocytes % 5 % Eosinophils % 1 % Basophils % 0 % Neutrophils # 6.4 (1.3-7.7) k/uL Lymphocytes # 1.8 (1.0-4.8) k/uL Monocytes # 0.5 (0-1.0) k/uL Eosinophils # 0.1 (0-0.7) k/uL Basophils # 0.0 (0-0.2) k/uL Sodium 137 (137-145) mmol/L Potassium 4.6 (3.5-5.1) mmol/L Chloride 104 (98-107) mmol/L Carbon Dioxide 21 L (22-30) mmol/L Anion Gap 12 mmol/L BUN 15 (7-17) mg/dL Creatinine 0.56 (0.52-1.04) mg/dL Est GFR (CKD-EPI)AfAm >90 (>60 ml/min/1.73 sqM) Est GFR (CKD-EPI)NonAf >90 (>60 ml/min/1.73 sqM) Glucose 171 H (74-99) mg/dL Calcium 9.4 (8.4-10.2) mg/dL Total Bilirubin 0.7 (0.2-1.3) mg/dL AST 47 H (14-36) U/L ALT 23 (4-34) U/L Alkaline Phosphatase 23 L (38-126) U/L Troponin I <0.012 (0.000-0.034) ng/mL Total Protein 7.6 (6.3-8.2) g/dL Albumin 4.5 (3.5-5.0) g/dL Lipase 111 (23-300) U/L Disposition Clinical Impression: Abdominal pain Disposition: HOME SELF-CARE Condition: Good Instructions (If sedation given, give patient instructions): Abdominal Pain (ED) Is patient prescribed a controlled substance at d/c from ED?: No Referrals: Aden Jeffers DO [Primary Care Provider] - 1-2 days Time of Disposition: 11:12
[2024-03-27] MEDS: PANTOPRAZOLE 40 MG/10 ML VIAL IVP STA (09:18)
[2024-03-27 09:32] LABS: Basophils % (A) 0 %; Eosinophils # (A) 0.1 k/uL (0-0.7); Eosinophils % (A) 1 %; HCT 37.4 % (34.0-46.0); HGB 12.4 gm/dL (11.4-16.0); Lymphocytes # (A) 1.8 k/uL (1.0-4.8); Lymphocytes % (A) 20 %; MCH 32.2 pg (25.0-35.0); MCHC 33.1 g/dL (31.0-37.0); MCV 97.3 fL (80.0-100.0); Mean Platelet Volume 7.1; Monocytes # (A) 0.5 k/uL (0-1.0); Monocytes % (A) 5 %; Neutrophils # (A) 6.4 k/uL (1.3-7.7); Neutrophils % (A) 72 %; Platelet Count 338 k/uL (150-450); RBC 3.84 m/uL (3.80-5.40); RDW 13.1 % (11.5-15.5); WBC 8.9 k/uL (3.8-10.6)
--- NOTE | 2024-03-27 09:44 | XR ---
EXAMINATION TYPE: XR chest 2V DATE OF EXAM: 03/27/2024 COMPARISON: NONE HISTORY: Shortness of breath TECHNIQUE: Frontal and lateral views of the chest are obtained. FINDINGS: Scattered senescent parenchymal changes noted. No evidence for infiltrate. No evidence for atelectasis. Heart size is stable. Mediastinal structures are stable and grossly unremarkable. No evidence for hilar prominence. Degenerative changes dorsal spine. IMPRESSION: 1. No evidence for acute pulmonary disease.
[2024-03-27 09:45] LABS: ALT 23 U/L (4-34); African American GFR (CKD) >90 (>60 ml/min/1.73 sqM); Anion Gap 12 mmol/L; Blood Urea Nitrogen 15 mg/dL (7-17); Calcium 9.4 mg/dL (8.4-10.2); Carbon Dioxide 21 mmol/L (22-30); Chloride 104 mmol/L (98-107); Glucose 171 mg/dL (74-99); Lipase 111 U/L (23-300); Non-African American GFR(CKD) >90 (>60 ml/min/1.73 sqM); Sodium 137 mmol/L (137-145); Total Bilirubin 0.7 mg/dL (0.2-1.3)
[2024-03-27 09:51] LABS: AST 47 U/L (14-36); Albumin 4.5 g/dL (3.5-5.0); Alkaline Phosphatase 23 U/L (38-126); Potassium 4.6 mmol/L (3.5-5.1); Total Protein 7.6 g/dL (6.3-8.2)
--- NOTE | 2024-03-27 10:42 | CT ---
EXAMINATION TYPE: CT abdomen pelvis w con CT DLP: 1817.1 mGycm, Automated exposure control for dose reduction was used. DATE OF EXAM: 03/27/2024 10:32 AM COMPARISON: None CLINICAL INDICATION:Female, 68 years old with history of lower chest pain; Lower chest pain (LUQ and RUQ) x 5 days TECHNIQUE: Standard CT of the abdomen and pelvis following the administration of 100 cc of Isovue 3 00 IV contrast material. Coronal and sagittal reformats were performed. FINDINGS: LOWER CHEST: Posterior dependent subsegmental atelectasis is noted. ABDOMEN LIVER: Diffusely hypoattenuating parenchyma. GALLBLADDER AND BILE DUCTS: The gallbladder is surgically absent. No biliary ductal dilatation. PANCREAS: Unremarkable. SPLEEN: Unremarkable. ADRENAL GLANDS: Unremarkable. KIDNEYS AND URETERS: No evidence of hydronephrosis or renal calculus. The kidneys enhance symmetrical ly. Retroaortic left renal vein. Contrast is demonstrated within both collecting systems on the delay ed phase. PELVIS BLADDER: Incompletely distended but grossly unremarkable. REPRODUCTIVE: The uterus is surgically absent. ABDOMEN & PELVIS STOMACH AND BOWEL: Stomach and duodenum are unremarkable. No focal bowel wall thickening or surroundi ng inflammatory changes. The appendix is within normal limits. No evidence of bowel obstruction. PERITONEUM: No evidence of pneumoperitoneum or free fluid. VASCULATURE: Mild atherosclerotic calcifications are present throughout the abdominal aorta and its b ranches. No evidence of aortic aneurysm. MUSCULOSKELETAL: No acute osseous abnormalities. Mild multilevel degenerative disc disease. LYMPH NODES: No gross evidence for lymphadenopathy. SOFT TISSUE/ABDOMINAL WALL: Unremarkable IMPRESSION: 1. No acute abdominal/pelvic process. 2. Hepatic steatosis. 3. Postcholecystectomy changes.
[2024-03-27 11:17] VITALS: BP 161/94; PULSE 94; TEMP 98.7
--- NOTE | 2024-03-28 09:14 | ED ---
Medical Decision Making - Lab Data Result diagrams: 03/27/24 09:22 03/27/24 09:22 Lab Results 03/27/24 03/27/24 03/27/24 Range/Units 09:22 09:22 09:22 WBC 8.9 (3.8-10.6) k/uL RBC 3.84 (3.80-5.40) m/uL Hgb 12.4 (11.4-16.0) gm/dL Hct 37.4 (34.0-46.0) % MCV 97.3 (80.0-100.0) fL MCH 32.2 (25.0-35.0) pg MCHC 33.1 (31.0-37.0) g/dL RDW 13.1 (11.5-15.5) % Plt Count 338 (150-450) k/uL MPV 7.1 Neutrophils % 72 % Lymphocytes % 20 % Monocytes % 5 % Eosinophils % 1 % Basophils % 0 % Neutrophils # 6.4 (1.3-7.7) k/uL Lymphocytes # 1.8 (1.0-4.8) k/uL Monocytes # 0.5 (0-1.0) k/uL Eosinophils # 0.1 (0-0.7) k/uL Basophils # 0.0 (0-0.2) k/uL Sodium 137 (137-145) mmol/L Potassium 4.6 (3.5-5.1) mmol/L Chloride 104 (98-107) mmol/L Carbon Dioxide 21 L (22-30) mmol/L Anion Gap 12 mmol/L BUN 15 (7-17) mg/dL Creatinine 0.56 (0.52-1.04) mg/dL Est GFR (CKD-EPI)AfAm >90 (>60 ml/min/1.73 sqM) Est GFR (CKD-EPI)NonAf >90 (>60 ml/min/1.73 sqM) Glucose 171 H (74-99) mg/dL Calcium 9.4 (8.4-10.2) mg/dL Total Bilirubin 0.7 (0.2-1.3) mg/dL AST 47 H (14-36) U/L ALT 23 (4-34) U/L Alkaline Phosphatase 23 L (38-126) U/L Troponin I <0.012 (0.000-0.034) ng/mL Total Protein 7.6 (6.3-8.2) g/dL Albumin 4.5 (3.5-5.0) g/dL Lipase 111 (23-300) U/L Disposition Clinical Impression: Abdominal pain Disposition: HOME SELF-CARE Condition: Good Instructions (If sedation given, give patient instructions): Abdominal Pain (ED) Prescriptions: traMADol HCL 25 mg PO Q6H 3 Days #12 tab Is patient prescribed a controlled substance at d/c from ED?: Yes If prescribed controlled substance>3 days was MAPS reviewed?: Prescribed <3 Days Referrals: Aden Jeffers DO [Primary Care Provider] - 1-2 days
== END 2024-03-27 11:20 | disposition home or self-care (01) ==
LOC: EC 08:26
DX: R10.32 Left lower quadrant pain (principal); E11.9 Type 2 diabetes mellitus without complications; I10 Essential (primary) hypertension; I25.10 Atherosclerotic heart disease of native coronary artery without angina pectoris; Z90.49 Acquired absence of other specified parts of digestive tract; Z79.899 Other long term (current) drug therapy
CPT/HCPCS: 36415; 93005; 80053; 83690; 84484; 85025; 71046; 74177; 99284; 96374; Q9967; J2470